=== PATIENT | female | born 1965 | race Caucasian/White ===

== ENCOUNTER 2016-07-05 07:50 | Emergency (ER) | payer OTHER ==
[~2016-07-05] VITALS: Ht 165.1 cm; Wt 57.6 kg
[~2016-07-05 07:50] MED LIST: ADVAIR 250/501 DISK IH; ADVIL200 MG PO; AMITRIPTYLINE H10 M1 PO; AVINZA30 MG PO; BACTRIM,SEPT1 TABLET PO; BENTYL10 MG PO; BENTYL20 MG PO; CARISOPRODOL350 MG PO; CELEXA40 MG PO; CIPROFLOXACIN500 M1 PO; CLINDAMYCIN HC300 MG PO; COLACE100 MG PO; COMBIVENT INH14.7 GM IH; COMBIVENT RESPIM4 GM IH; COMPAZINE10 MG PO; Combivent IH; DICYCLOMINE HCL20 MG PO; DILAUDID2 MG PO; DILAUDID4 MG PO; DUONEB 2.5-0.5 M3 ML IH; Diflucan PO; EPIPEN ADU0.3 MG/0.3 IM; ESTRACE1 MG PO; ESTRADIOL1 MG; ESTRADIOL1 MG PO; Estrace PO; FLAGYL500 MG PO; Flagyl PO; GABAPENTIN600 MG PO; GABAPENTIN800 MG PO; HABITROL,NICODE21 MG TD; HYDROCODON-ACE1 EAC7 PO; HYDROCODONE/AP1 EAC1 PO; IMITREX20 MG NS; KEFLEX500 MG PO; LEVAQUIN750 MG PO; LEVOFLOXACIN750 MG PO; LEXAPRO20 MG PO; LODINE200 MG PO; LYRICA100 MG PO; METRONIDAZOLE500 MG PO; MIRAPEX0.125 MG PO; MORPHINE SULFAT15 M1 PO; MORPHINE SULFAT15 MG PO; MORPHINE SULFAT30 M2 PO; NEURONTIN300 MG PO; NEURONTIN600 MG PO; NICOTINE PATCH1 EAC2 TD; NORCO 5/3251 TABLET PO; PANTOPRAZOLE SO40 MG; PANTOPRAZOLE SO40 MG PO; PEPCID40 MG PO; PHENERGAN12.5 M1 PO; PRAMIPEXOLE D0.25 M1 PO; PREDNISONE10 MG PO; PRILOSEC20 MG PO; PROMETHAZINE HC25 M1 PO; PROTONIX20 MG PO; PROTONIX40 MG PO; PROVENTIL2.5 MG/3 M IH; PriLOSEC PO; Protonix PO; REGLAN10 M1 PO; REGLAN10 MG PO; REQUIP0.25 MG PO; ROBAXIN750 MG PO; Reglan PO; SEROQUEL50 MG PO; SOMA350 MG PO; SPIRIVA1 INHALATI IH; SUMAVEL DO4 MG/0.5 M SC; TRAMADOL HCL50 MG PO; TRAZODONE HCL50 MG PO; TYLENOL EXTRA500 MG PO; VICODIN,LORT1 TABLET PO; VITAMIN D31000 UNI2 PO; VIVELLE,ESTRAD0.1 MG TD; VIVELLE1 EAC1 TD; Vicodin,Lortab 5/500 PO; ZANAFLEX4 MG PO; ZOFRAN ODT4 MG PO; ZOFRAN4 MG PO; ZOHYDRO ER10 MG PO; ZUBSOLV 5.7-1.1 EACH SL; Zofran PO; [UNRECOGNIZED DRUG - OTHER]; [UNRECOGNIZED DRUG - REMARK]
[2016-07-05 08:44] LABS: MCH 29.7 PG (29.0-34.0); MCHC 34.2 G/DL (30.0-36.0); MCV 86.7 FL (83-99); MEAN PLAT.VOLUME 10.1 uM^3 (9.5-12.4); PLATELET COUNT 340 K/uL (156-360); RBC DIS.WIDTH-CV 13.6 % (11.8-14.6); RBC DIS.WIDTH-SD 43.1 % (39-53)
[2016-07-05 08:45] LABS: BASOPHIL COUNT 0.1 K/uL (0-0.1); EOSINOPHIL (%) 0.4 % (0-5); IMMATURE GRANULOCYTE (%) 0.5 % (0.0-0.7); IMMATURE GRANULOCYTE COUNT 0.5 K/uL; LYMPHOCYTE COUNT 2.8 K/uL (1.0-2.8); MONOCYTE (%) 6.4 % (3-12); MONOCYTE COUNT 0.7 K/uL (0-0.8); NEUTROPHIL (%) 66.9 % (45-76); NEUTROPHIL COUNT 7.4 K/uL (1.8-6.4)
[2016-07-05 09:01] LABS: CHLORIDE 108 mEq/L (99-109); POTASSIUM 4.3 mEq/L (3.7-5.4); SODIUM 141 mEq/L (136-147)
[2016-07-05 09:03] LABS: GLUCOSE 134 mg/dL (70-99)
[2016-07-05 09:04] LABS: ANION GAP 14 MEQ/L (2-14)
[2016-07-05 09:05] LABS: TOTAL BILIRUBIN 0.5 mg/dL (0.0-1.0)
[2016-07-05 09:06] LABS: ALKALINE PHOSPHATASE 95 IU/L (3-129)
[2016-07-05 09:07] LABS: GFR ESTIMATE (CALCULATED) > 59 mL/min/
[2016-07-05 09:08] LABS: UREA NITROGEN (BUN) 16 mg/dL (9-23)
[2016-07-05 09:10] LABS: LIPASE 68 U/L (1.0-51.0)
[2016-07-05 09:16] LABS: TROP-I INTERPRETATION NEGATIVE; TROPONIN-I < 0.01 ng/mL (0.0-0.30)
[2016-07-05] MEDS ORDERED: CARAFATE1 GM PO (12:08)
[2016-07-05 12:39] VITALS: BP 98/56
== END 2016-07-05 12:48 | disposition home or self-care (01) ==
LOC: EME 07:50
PROVIDERS: Emergency Medicine
DX: K85.90 Acute pancreatitis without necrosis or infection, unspecified (principal); R11.10 Vomiting, unspecified; G89.29 Other chronic pain; R56.9 Unspecified convulsions; F17.200 Nicotine dependence, unspecified, uncomplicated
CPT/HCPCS: 74176; 74177; 80053; 83690; 84484; 85025; 93005; 99281; 99284; J2765; J3010; J7030

== ENCOUNTER 2016-08-10 15:06 | Emergency (ER) | payer OTHER ==
[~2016-08-10] VITALS: Ht 160 cm; Wt 59.0 kg
[~2016-08-10 15:06] MED LIST changes: +CARAFATE1 GM PO
[2016-08-10 16:09] LABS: EOSINOPHIL COUNT 0.1 K/uL (0-0.3); HEMATOCRIT 48.1 % (36.0-46.0); IMMATURE GRANULOCYTE (%) 0.4 % (0.0-0.7); IMMATURE GRANULOCYTE COUNT 0.1 K/uL; INSTRUMENT ABS NEUTROPHIL CT 6.7 K/uL; LYMPHOCYTE COUNT 4.6 K/uL (1.0-2.8); MCH 29.4 PG (29.0-34.0); MCHC 34.1 G/DL (30.0-36.0); MCV 86.4 FL (83-99); MEAN PLAT.VOLUME 9.7 uM^3 (9.5-12.4); MONOCYTE (%) 8.3 % (3-12); NEUTROPHIL (%) 53.7 % (45-76); NEUTROPHIL COUNT 6.7 K/uL (1.8-6.4); PLATELET COUNT 338 K/uL (156-360); RBC DIS.WIDTH-CV 13.2 % (11.8-14.6); RBC DIS.WIDTH-SD 41.6 % (39-53); RED BLOOD COUNT 5.57 M/uL (3.80-5.20); WHITE BLOOD COUNT 12.5 K/uL (4.1-10.2)
[2016-08-10 17:16] LABS: CHLORIDE 107 mEq/L (99-109); POTASSIUM 4.8 mEq/L (3.7-5.4); SODIUM 144 mEq/L (136-147)
[2016-08-10 17:18] LABS: GLUCOSE 90 mg/dL (70-99)
[2016-08-10 17:19] LABS: ANION GAP 12 MEQ/L (2-14)
[2016-08-10 17:20] LABS: TOTAL BILIRUBIN 0.4 mg/dL (0.0-1.0)
[2016-08-10 17:22] LABS: ALKALINE PHOSPHATASE 64 IU/L (3-129); GFR ESTIMATE (CALCULATED) > 59 mL/min/
[2016-08-10 17:23] LABS: UREA NITROGEN (BUN) 14 mg/dL (9-23)
[2016-08-10 17:25] LABS: LIPASE 9 U/L (1.0-51.0)
[2016-08-10 20:55] VITALS: BP 105/55
== END 2016-08-10 20:57 | disposition home or self-care (01) ==
LOC: EXP 15:06 → EME 15:06 → EXP 20:57
PROVIDERS: Physician Assistant
DX: R10.31 Right lower quadrant pain (principal); R11.0 Nausea; G89.29 Other chronic pain; R56.9 Unspecified convulsions; F17.200 Nicotine dependence, unspecified, uncomplicated
CPT/HCPCS: 74176; 80053; 81003; 83690; 85025; 99281; 99285; J2270

== ENCOUNTER 2016-09-10 16:26 | Inpatient (IN) | payer OTHER ==
[~2016-09-10] VITALS: Ht 165.1 cm; Wt 61.5 kg
[2016-09-10 17:31] LABS: HEMATOCRIT 42.7 % (36.0-46.0); MCH 29.7 PG (29.0-34.0); MCHC 33.5 G/DL (30.0-36.0); MCV 88.8 FL (83-99); MEAN PLAT.VOLUME 9.6 uM^3 (9.5-12.4); PLATELET COUNT 297 K/uL (156-360); RBC DIS.WIDTH-CV 14.4 % (11.8-14.6); RBC DIS.WIDTH-SD 46.9 % (39-53); RED BLOOD COUNT 4.81 M/uL (3.80-5.20); WHITE BLOOD COUNT 10.2 K/uL (4.1-10.2)
[2016-09-10 17:41] LABS: CHLORIDE 107 mEq/L (99-109); SODIUM 141 mEq/L (136-147)
[2016-09-10 17:44] LABS: GLUCOSE 97 mg/dL (70-99)
[2016-09-10 17:45] LABS: ANION GAP 10 MEQ/L (2-14)
[2016-09-10 17:46] LABS: TOTAL BILIRUBIN 0.3 mg/dL (0.0-1.0)
[2016-09-10 17:47] LABS: ALKALINE PHOSPHATASE 56 IU/L (3-129); GFR ESTIMATE (CALCULATED) > 59 mL/min/
[2016-09-10 17:48] LABS: UREA NITROGEN (BUN) 11 mg/dL (9-23)
[2016-09-10 17:58] LABS: AMYLASE 52 IU/L (1-118)
[2016-09-10 18:07] LABS: LIPASE 25 U/L (1.0-51.0)
[2016-09-10] MEDS ORDERED: HYOSCYAMINE0.125 MG PO (19:02)
[2016-09-10] MEDS ORDERED: HAIR, SKIN & N1 EAC1 PO (19:03)
[2016-09-10] MEDS ORDERED: TYLENOL EXTRA500 MG PO (19:03)
[2016-09-10] MEDS ORDERED: DITROPAN XL10 MG PO (19:03)
[2016-09-10] MEDS ORDERED: ROPINIROLE HCL2 M1 PO (19:09)
[2016-09-10 20:00] LABS: ADD MIUA? YES; BILIRUBIN NEGATIVE; BLOOD NEGATIVE; COLOR YELLOW ((YELLOW)); GLUCOSE (STRIP) NEGATIVE; KETONES NEGATIVE; LEUKOCYTES NEGATIVE; NITRITE NEGATIVE; PROTEIN (STRIP) NEGATIVE; SPECIFIC GRAVITY 1.015 (1.000-1.030); UROBILINOGEN 0.2 MG/DL (0.2-1.0)
[2016-09-10 20:04] LABS: BACTERIA NONE SEEN /HPF; EPITHELIAL CELLS RARE /HPF; MUCUS TRACE /LPF; RED BLOOD CELLS 0-5 /HPF (0-5); UCUL ADDED? NO; WHITE BLOOD CELLS 0-5 /HPF (0-5)
[2016-09-11] VITALS (7 sets, daily range): BP systolic 78–124; BP diastolic 53–80
[2016-09-11 06:26] LABS: HEMATOCRIT 39.8 % (36.0-46.0); MCH 29.9 PG (29.0-34.0); MCHC 33.4 G/DL (30.0-36.0); MCV 89.4 FL (83-99); MEAN PLAT.VOLUME 10.2 uM^3 (9.5-12.4); PLATELET COUNT 245 K/uL (156-360); RBC DIS.WIDTH-CV 14.5 % (11.8-14.6); RBC DIS.WIDTH-SD 47.6 % (39-53); RED BLOOD COUNT 4.45 M/uL (3.80-5.20); WHITE BLOOD COUNT 7.8 K/uL (4.1-10.2)
[2016-09-11 06:50] LABS: ANION GAP 7 MEQ/L (2-14); CHLORIDE 111 MEQ/L (99-109); GFR ESTIMATE (CALCULATED) > 59 mL/min/; GLUCOSE 140 mg/dL (70-99); POTASSIUM 4.2 MEQ/L (3.7-5.4); SAMPLE HEMOLYSIS CHECK 0; SAMPLE ICTERIC CHECK 0; SAMPLE LIPEMIA CHECK 0; SODIUM 140 MEQ/L (136-147); UREA NITROGEN (BUN) 8 mg/dL (9-23)
[2016-09-12 03:31] VITALS: BP 91/55
[2016-09-12 07:55] LABS: ANION GAP 12 MEQ/L (2-14); CHLORIDE 111 MEQ/L (99-109); GFR ESTIMATE (CALCULATED) > 59 mL/min/; POTASSIUM 3.7 MEQ/L (3.7-5.4); SAMPLE HEMOLYSIS CHECK 0; SAMPLE ICTERIC CHECK 0; SAMPLE LIPEMIA CHECK 0; SODIUM 143 MEQ/L (136-147); UREA NITROGEN (BUN) 7 mg/dL (9-23)
[2016-09-12 08:07] LABS: GLUCOSE 75 mg/dL (70-99)
[2016-09-12 08:09] VITALS: BP 118/71
[2016-09-12 10:38] LABS: ADD MIUA? YES; BILIRUBIN NEGATIVE; BLOOD SMALL; COLOR YELLOW ((YELLOW)); GLUCOSE (STRIP) NEGATIVE; KETONES NEGATIVE; LEUKOCYTES NEGATIVE; NITRITE NEGATIVE; PROTEIN (STRIP) NEGATIVE; SPECIFIC GRAVITY 1.017 (1.000-1.030); UROBILINOGEN 0.2 MG/DL (0.2-1.0)
[2016-09-12 11:49] LABS: BACTERIA RARE /HPF; EPITHELIAL CELLS 1+ /HPF; MUCUS TRACE /LPF; WHITE BLOOD CELLS 0-5 /HPF (0-5)
[2016-09-12 12:24] VITALS: BP 129/77
[2016-09-12 12:32] LABS: MCH 29.6 PG (29.0-34.0); MCHC 33.2 G/DL (30.0-36.0); MCV 89.4 FL (83-99); PLATELET COUNT 223 K/uL (156-360); RBC DIS.WIDTH-CV 14.6 % (11.8-14.6); RBC DIS.WIDTH-SD 47.4 % (39-53); RED BLOOD COUNT 4.25 M/uL (3.80-5.20)
[2016-09-12 12:40] LABS: WHITE BLOOD COUNT 12.9 K/uL (4.1-10.2)
[2016-09-12 15:15] VITALS: BP 106/62
[2016-09-12 20:00] VITALS: BP 95/60
[2016-09-12 23:57] VITALS: BP 105/62
[2016-09-13 04:30] VITALS: BP 100/66
[2016-09-13 08:01] VITALS: BP 118/67
[2016-09-13 11:36] VITALS: BP 113/69
[2016-09-13 16:06] VITALS: BP 116/71
[2016-09-13 23:51] VITALS: BP 121/70
[2016-09-14 08:16] VITALS: BP 116/87
[2016-09-14] MEDS ORDERED: NICOTINE PATCH1 EAC1 TD (14:33)
[2016-09-14] MEDS ORDERED: HYDROMORPHONE HC2 MG PO (14:34)
[2016-09-14] MEDS ORDERED: BENTYL20 MG PO (14:34)
[2016-09-21 03:34] LABS: Coproporphyrin I 18.3 mcg/24 h (7.1-48.7); Coproporphyrin III 146.7 mcg/24 h (11.0-148.5); Heptacarboxylporphyrin 2.8 mcg/24 h (< OR = 3.3); PHG 24-hour Volume 5000 mL (())
== END 2016-09-14 15:35 | disposition home or self-care (01) | DRG 394 ==
LOC: EME 16:26 → 5WEST 22:09 → EDOF 22:09 → 5WEST 09-11 00:19 → 5SOUTH 09-11 16:05
PROVIDERS: Internal Medicine; Nurse Practitioner Adult Health; Physician Assistant; Physician Assistant Medical; Student in an Organized Health Care Education/Training Program
DX: K66.0 Peritoneal adhesions (postprocedural) (postinfection) (principal); K92.1 Melena; D12.0 Benign neoplasm of cecum; D12.5 Benign neoplasm of sigmoid colon; J44.9 Chronic obstructive pulmonary disease, unspecified; E86.0 Dehydration; F17.200 Nicotine dependence, unspecified, uncomplicated; G43.909 Migraine, unspecified, not intractable, without status migrainosus; F41.9 Anxiety disorder, unspecified; K21.9 Gastro-esophageal reflux disease without esophagitis; F31.9 Bipolar disorder, unspecified; M54.9 Dorsalgia, unspecified; G89.4 Chronic pain syndrome; G25.81 Restless legs syndrome; R63.4 Abnormal weight loss; F12.90 Cannabis use, unspecified, uncomplicated; I95.2 Hypotension due to drugs; T40.2X5A Adverse effect of other opioids, initial encounter; K64.9 Unspecified hemorrhoids; Z88.0 Allergy status to penicillin; Z91.040 Latex allergy status
CPT/HCPCS: 71020; 74177; 80048; 80053; 81003; 82150; 83605; 83690; 84120 90; 85027; 85651; 87493; 88305; 93005; 94640; 94640 76; 99202; 99281; 99285; C9113; G0378; J1170; J1200; J1630; J1644; J1885; J2270; J2405; J2765; J2930; J3010; J7030; Q0169

== ENCOUNTER → 2016-10-17 | Outpatient (CLI) | payer OTHER ==
[~2016-10-17] MED LIST changes: +DITROPAN XL10 MG PO; +HAIR, SKIN & N1 EAC1 PO; +HYDROMORPHONE HC2 MG PO; +HYOSCYAMINE0.125 MG PO; +NICOTINE PATCH1 EAC1 TD; +ROPINIROLE HCL2 M1 PO
== END | disposition home or self-care (01) ==
LOC: CDC 09:06
DX: M79.662 Pain in left lower leg (principal)
CPT/HCPCS: 93000

== ENCOUNTER 2016-12-17 19:58 | Emergency (ER) | payer OTHER ==
[~2016-12-17] VITALS: Ht 165.1 cm; Wt 66.2 kg
[2016-12-17 20:56] LABS: MCH 30.4 PG (29.0-34.0); MCHC 34.2 G/DL (30.0-36.0); MEAN PLAT.VOLUME 9.4 uM^3 (9.5-12.4); PLATELET COUNT 286 K/uL (156-360); RBC DIS.WIDTH-CV 13.2 % (11.8-14.6); RBC DIS.WIDTH-SD 43.4 % (39-53); RED BLOOD COUNT 4.83 M/uL (3.80-5.20); WHITE BLOOD COUNT 12.9 K/uL (4.1-10.2)
[2016-12-17 21:04] LABS: CHLORIDE 106 mEq/L (99-109); SODIUM 143 mEq/L (136-147)
[2016-12-17 21:06] LABS: GLUCOSE 92 mg/dL (70-99)
[2016-12-17 21:07] LABS: ANION GAP 11 MEQ/L (2-14)
[2016-12-17 21:08] LABS: TOTAL BILIRUBIN 0.2 mg/dL (0.0-1.0)
[2016-12-17 21:10] LABS: ALKALINE PHOSPHATASE 67 IU/L (3-129); GFR ESTIMATE (CALCULATED) > 59 mL/min/
[2016-12-17 21:11] LABS: UREA NITROGEN (BUN) 13 mg/dL (9-23)
[2016-12-17 21:13] LABS: LIPASE 15 U/L (1.0-51.0)
[2016-12-17 21:19] LABS: QUANTITATIVE HCG < 4.0 MIU/ML
[2016-12-17 21:25] LABS: ADD MIUA? YES; BILIRUBIN NEGATIVE; BLOOD NEGATIVE; COLOR YELLOW ((YELLOW)); GLUCOSE (STRIP) NEGATIVE; KETONES NEGATIVE; LEUKOCYTES NEGATIVE; NITRITE NEGATIVE; PROTEIN (STRIP) NEGATIVE; SPECIFIC GRAVITY 1.016 (1.000-1.030); UROBILINOGEN 0.2 MG/DL (0.2-1.0)
[2016-12-17 21:29] LABS: BACTERIA RARE /HPF; EPITHELIAL CELLS RARE /HPF; MUCUS TRACE /LPF; RED BLOOD CELLS 0-5 /HPF (0-5); UCUL ADDED? NO; WHITE BLOOD CELLS 0-5 /HPF (0-5)
[2016-12-18] VITALS: BP 105/64
== END 2016-12-18 00:02 | disposition home or self-care (01) ==
LOC: EME 19:58
DX: K57.30 Diverticulosis of large intestine without perforation or abscess without bleeding (principal); K21.9 Gastro-esophageal reflux disease without esophagitis; Z86.73 Personal history of transient ischemic attack (TIA), and cerebral infarction without residual deficits; F17.200 Nicotine dependence, unspecified, uncomplicated; Z88.6 Allergy status to analgesic agent; Z91.040 Latex allergy status; Z88.0 Allergy status to penicillin; Z91.041 Radiographic dye allergy status
CPT/HCPCS: 74176; 80053; 81003; 83690; 84702; 85027; 99281; 99285; J2270; J2405

== ENCOUNTER 2017-04-25 07:09 | Emergency (ER) | payer OTHER ==
[~2017-04-25] VITALS: Ht 165.1 cm; Wt 74.1 kg
[2017-04-25 07:56] LABS: HEMATOCRIT 44.9 % (36.0-46.0); HEMOGLOBIN 15.2 G/DL (11.9-15.5); MCHC 33.9 G/DL (30.0-36.0); MCV 88.7 FL (83-99); PLATELET COUNT 285 K/uL (156-360); RBC DIS.WIDTH-CV 13.6 % (11.8-14.6); RBC DIS.WIDTH-SD 44.4 % (39-53); RED BLOOD COUNT 5.06 M/uL (3.80-5.20); WHITE BLOOD COUNT 9.8 K/uL (4.1-10.2)
[2017-04-25 08:04] LABS: CHLORIDE 107 mEq/L (99-109); POTASSIUM 3.8 mEq/L (3.7-5.4); SODIUM 138 mEq/L (136-147)
[2017-04-25 08:06] LABS: GLUCOSE 100 mg/dL (70-99)
[2017-04-25 08:10] LABS: CREATININE 0.8 mg/dL (0.6-1.3); GFR ESTIMATE (CALCULATED) > 59 mL/min/
[2017-04-25 08:11] LABS: UREA NITROGEN (BUN) 13 mg/dL (9-23)
[2017-04-25 08:24] LABS: D-DIMER ELISA < 150.00 ng/mLDDU (<230)
[2017-04-25 11:02] LABS: TROP-I INTERPRETATION NEGATIVE; TROPONIN-I < 0.01 ng/mL (0.0-0.30)
[2017-04-25] MEDS ORDERED: VENTOLIN HFA18 GM IH (11:19)
[2017-04-25] MEDS ORDERED: ZITHROMAX Z-PA250 MG PO (11:19)
[2017-04-25] MEDS ORDERED: PREDNISONE20 MG PO (11:19)
[2017-04-25 11:56] LABS: TROP-I INTERPRETATION NEGATIVE; TROPONIN-I < 0.01 ng/mL (0.0-0.30)
[2017-04-25 12:07] VITALS: BP 111/67
== END 2017-04-25 12:09 | disposition home or self-care (01) ==
LOC: EME 07:09
PROVIDERS: Emergency Medicine
DX: J20.9 Acute bronchitis, unspecified (principal); F17.200 Nicotine dependence, unspecified, uncomplicated; K21.9 Gastro-esophageal reflux disease without esophagitis; F32.9 Major depressive disorder, single episode, unspecified; F41.9 Anxiety disorder, unspecified; K58.0 Irritable bowel syndrome with diarrhea; G89.29 Other chronic pain; Z86.73 Personal history of transient ischemic attack (TIA), and cerebral infarction without residual deficits; R56.9 Unspecified convulsions; Z98.84 Bariatric surgery status; Z91.040 Latex allergy status; Z88.5 Allergy status to narcotic agent; Z88.0 Allergy status to penicillin; Z88.6 Allergy status to analgesic agent
CPT/HCPCS: 71020; 80048; 84484; 85027; 85379; 93005; 94640; 99281; 99285

== ENCOUNTER 2017-05-21 11:52 | Emergency (ER) | payer OTHER ==
[~2017-05-21] VITALS: Ht 165.1 cm; Wt 74.8 kg
[~2017-05-21 11:52] MED LIST changes: +PREDNISONE20 MG PO; +VENTOLIN HFA18 GM IH; +ZITHROMAX Z-PA250 MG PO
[2017-05-21 12:50] LABS: HEMATOCRIT 47.3 % (36.0-46.0); HEMOGLOBIN 16.3 G/DL (11.9-15.5); MCH 31.1 PG (29.0-34.0); MCHC 34.5 G/DL (30.0-36.0); MCV 90.3 FL (83-99); PLATELET COUNT 327 K/uL (156-360); RBC DIS.WIDTH-CV 13.5 % (11.8-14.6); RBC DIS.WIDTH-SD 45.3 % (39-53); RED BLOOD COUNT 5.24 M/uL (3.80-5.20); WHITE BLOOD COUNT 12.1 K/uL (4.1-10.2)
[2017-05-21 12:59] LABS: ALBUMIN 4.5 g/dL (3.2-4.8); CHLORIDE 108 mEq/L (99-109); POTASSIUM 4.1 mEq/L (3.7-5.4); SODIUM 140 mEq/L (136-147)
[2017-05-21 13:00] LABS: AMYLASE 47 IU/L (1-118)
[2017-05-21 13:01] LABS: GLUCOSE 93 mg/dL (70-99)
[2017-05-21 13:03] LABS: TOTAL BILIRUBIN 0.2 mg/dL (0.0-1.0)
[2017-05-21 13:05] LABS: ALKALINE PHOSPHATASE 63 IU/L (3-129); GFR ESTIMATE (CALCULATED) > 59 mL/min/
[2017-05-21 13:06] LABS: UREA NITROGEN (BUN) 15 mg/dL (9-23)
[2017-05-21 13:07] LABS: AST (GOT) 26 IU/L (2-34)
[2017-05-21 13:08] LABS: ALT (GPT) 18 IU/L (3-49)
[2017-05-21 18:46] LABS: APPEARANCE SL.HAZY ((CLEAR)); BILIRUBIN NEGATIVE; BLOOD NEGATIVE; COLOR YELLOW ((YELLOW)); GLUCOSE (STRIP) NEGATIVE; KETONES NEGATIVE; LEUKOCYTES NEGATIVE; NITRITE NEGATIVE; PROTEIN (STRIP) NEGATIVE; UROBILINOGEN 0.2 MG/DL (0.2-1.0)
[2017-05-21 19:02] LABS: SPECIFIC GRAVITY 1.076 (1.000-1.030)
[2017-05-21 19:17] LABS: BACTERIA 2+ /HPF; EPITHELIAL CELLS 2+ /HPF; HYALINE CASTS 0-5 /LPF; MUCUS TRACE /LPF; UCUL ADDED? YES; WHITE BLOOD CELLS 0-5 /HPF (0-5)
[2017-05-21 20:05] VITALS: BP 113/70
== END 2017-05-21 20:00 | disposition home or self-care (01) ==
LOC: EME 11:52
PROVIDERS: Specialist
DX: R10.32 Left lower quadrant pain (principal); R11.2 Nausea with vomiting, unspecified; R19.7 Diarrhea, unspecified; R14.0 Abdominal distension (gaseous); M54.9 Dorsalgia, unspecified; K76.0 Fatty (change of) liver, not elsewhere classified; Z90.49 Acquired absence of other specified parts of digestive tract; Z90.710 Acquired absence of both cervix and uterus; J44.9 Chronic obstructive pulmonary disease, unspecified; Z86.73 Personal history of transient ischemic attack (TIA), and cerebral infarction without residual deficits; Z79.890 Hormone replacement therapy; F17.200 Nicotine dependence, unspecified, uncomplicated
CPT/HCPCS: 74177; 80053; 81003; 82150; 85027; 87086; 87177; 87493; 87506; J1200; J2270; J2405; J7040

== ENCOUNTER → 2017-08-30 | Outpatient (CLI) | payer OTHER | END | disposition home or self-care (01) | LOC: CDC 08:53 | DX: Z01.810 Encounter for preprocedural cardiovascular examination (principal) | CPT/HCPCS: 93000 ==